=== PATIENT | male | born 1965 | race Caucasian/White ===

== ENCOUNTER 2023-10-28 16:50 | Emergency (ER) | payer OTHER, SELFPAY ==
[2023-10-28 17:00] VITALS: BP 116/77
--- NOTE | 2023-10-28 18:35 | ED.SKININJ ---
Addendum entered and electronically signed by Faby Tamez PA-C 11/06/23 12:38:
Procedure note for the lacerations on the left hand
There were two 2 cm wounds on the left radial wrist that were repaired with sutures, 1 had 3 sutures 5-0 nylon loosely approximated and the other had 2 sutures 5-0 nylon loosely approximated
Another dorsal hand laceration arc shaped measuring 2 cm with 2 sutures loosely approximating
Lidocaine 6 mL with epi 1% used to anesthetize
Irrigated with saline
No complications
Wound dressed with bacitracin dressing
Original Note:
HPI-Injury
General
Chief Complaint: Bite
Source: patient
Exam Limitations: none
Time Seen by Provider: 10/28/23 18:10
Nursing documentation reviewed up to this point in time: agreed with
Travel History
Have you had any contact with someone who has COVID-19?: No
Do you have any symptoms of coronavirus? Fever > 100 degrees, chills, cough, shortness of breath, sore throat, loss of taste or smell, muscle aches, or headache?: No
History of Present Illness-Injury
Initial Injury comments:
PT IS A 58 Y/O M right hand dominant
here with lacerations to left hand x 2 from dog bite from trying to separate his dog from neighbor's house pet today
he has pain with thumb abduction but no numbness/deficits
no thinners
tetanus UTD
nothing taken for tristen
Past History
Past History
ED Past Medical History: None
Social History
Tobacco: Non-smoker
Personal:
Living: with family
Employment: Employed
Review of Systems
Review of Systems
Allergies reviewed?: Yes
All Other Systems: Not applicable
Phy Exam
Physical Exam
Physical Exam:
GENERAL: Alert , in no apparent distress, comfortable at rest
HEAD: NCAT
CV: 2+ radial pulse, cap refill itact
NEUROLOGICAL: Alert and oriented, no focal neuro deficits, , 5/5 strength, sensation intact,
SKIN: Warm and dry, laceration left wrist 2 cm linear
another laceration distally to that approx 2.5 cm open to fascia not through
no tendon exposure
able to abduct the thumb but has some pain
dorsal hand with arc shaped 2 cm laceration
small puncture dorsal wrist
MUSCULOSKELETAL: left wrist/hand laceration
PSYCH: Normal and appropriate interaction.
Course
Orders/Labs/Results
Orders:
Orders
10/28/23 18:34
Amoxicillin 875 mg/Clav 125 mg [Augmentin 875 mg/125 mg] 1 tablet PO NOW STA
CR Hand - Left Min 3 Views Urgent
Comment:
Reason For Exam: BIT BY DOG
Vital Signs
Initial and Last Documented VS:
Initial Vital Signs
Temp Pulse Resp Pulse Ox
97.8 F 91 22 100
10/28/23 16:58 10/28/23 16:58 10/28/23 16:58 10/28/23 16:58
Last Documented Vital Signs
Temp Pulse Resp BP Pulse Ox
97.8 F 80 20 142/90 98
10/28/23 16:58 10/28/23 19:11 10/28/23 19:11 10/28/23 19:11 10/28/23 20:10
MDM/Problems Addressed
MDM/Problems Addressed:
58 y/o R hand dominant, left hand lacerations x 3 from dog bites; he has a fracture of the proximal 1st metacarpal, i do not visualize bone, pt has no obvious tendon injury
has pain with movement of the thumb
xrays indep reviewed by me and has proximal 1st metacarpal fracture
d/w hand doctor dr. arriola who rcommended oral abx, wash out and after seeing lacerations via text message on [email or web address] text, recommended 2 stitches in each wound
*Critical Care Note
Total Time (30-74mins, 75-104mins- exclusive of procedures): Not Applicable
ED Attending Note
-
Portions of this chart may have been created with voice recognition software.� Occasional wrong word or��sound alike� substitutions may have occurred due to the inherent limitations of voice recognition software.
Discharge Plan
Departure
Patient Disposition: Home (Routine Discharge)
Date of Disposition: 10/28/23
Time of Disposition: 19:51
Patient with high blood pressure during this ER visit?: No
Condition: Fair
Covid-19: Not Applicable
Discharge Problem:
Dog bite, Fracture of metacarpal
Instructions: Animal Bites (DC), Laceration Repair With Stitches (DC), Hand Fracture ED
Prescriptions:
New
amoxicillin-pot clavulanate 875-125 mg tablet
1 tab PO BID Qty: 14 0RF
No Action
oxycodone-acetaminophen 5 MG/325 MG tablet
1 tab PO Q6HPRN PRN (Reason: pain) Qty: 14 0RF
diclofenac sodium 75 MG tablet,delayed release (DR/EC)
75 mg PO BID Qty: 14 0RF
Referrals:
Juan Arriola MD [Active] - Follow up in 5-7 days
Julio Milligan DO [Family Provider] -
Activity Restrictions/Additional Instructions:
You have lacerations over and a fracture in your hand because of the first metacarpal. Need to be seen by hand doctor. Call on Monday and tell them I spoke with Dr. Arriola when you were in the ER who recommended that you be seen this week. Take
Augmentin twice a day for 7 days to prevent infection. For pain take Motrin or Tylenol. Elevate your hand. Wear the splint at all times unless you are showering. You should remove the splint and dressing starting tomorrow and wash your hand once
or twice a day, being sure to look for redness or drainage or signs of infection and return immediately as needed. Otherwise follow-up with hand doctor
Interventions
Interventions:
*Risk Screen - Suicide Last Done: 10/28/23 16:58
*General Assessment Last Done: 10/28/23 16:58
*Neglect/Abuse Screening Last Done: 10/28/23 16:58
ED- Fall Risk Assessment Last Done: 10/28/23 19:11
*ED COVID-19 Vaccine History Last Done: 10/28/23 17:31
*Nursing Disposition Last Done: 10/28/23 20:10
ED-Skin Assessment Last Done: 10/28/23 19:11
Discharge Date and Time
Print Language: SURINAMESE
[2023-10-28] MEDS: AUGMENTIN 875 MG/125 MG 1 TABLET PO (18:46)
[2023-10-28 19:11] VITALS: BP 142/90
== END 2023-10-28 20:10 | disposition home or self-care (01) ==
LOC: EMR 16:50
PROVIDERS: EMERGENCY PHYSICIAN Emergency Medicine; FAMILY PHYSICIAN Internal Medicine
DX: S62.292A Other fracture of first metacarpal bone, left hand, initial encounter for closed fracture (principal); S61.532A Puncture wound without foreign body of left wrist, initial encounter; S61.512A Laceration without foreign body of left wrist, initial encounter; W54.0XXA Bitten by dog, initial encounter; Y93.89 Activity, other specified
CPT/HCPCS: 99283; 12002; 73130; 99282

== ENCOUNTER → 2023-11-15 17:47 | Outpatient (REF) | payer OTHER, SELFPAY | LOC: MRI 3T 17:47 | PROVIDERS: ATTENDING PHYSICIAN Internal Medicine | DX: R97.20 Elevated prostate specific antigen [PSA] (principal) | CPT/HCPCS: 72196; A9575 ==